=== PATIENT | female | born 1975 | race Hispanic/Latino ===

== ENCOUNTER 2020-04-21 22:59 | Emergency (ER) | payer SELFPAY ==
[2020-04-21] MEDS ORDERED: Metoclopramide HCl 10 MG/2 ML VIAL ONE (23:35)
[2020-04-21] MEDS ORDERED: diphenhydrAMINE 50 MG/ML VIAL ONE (23:35)
== END 2020-04-22 00:45 | disposition home or self-care (01) ==
LOC: BURERS 22:59
DX: R42 Dizziness and giddiness (principal); Z79.899 Other long term (current) drug therapy; G43.909 Migraine, unspecified, not intractable, without status migrainosus
CPT/HCPCS: 93005; 96374; 96375; J1200; J2765

== ENCOUNTER 2020-11-13 10:28 | Outpatient (CLI) | payer OTHER ==
[2020-11-13 10:56] LABS: #Basophils 0.1 thou/uL (0.0-0.2); #Eosinphils 0.2 thou/uL (0.0-0.7); #Monocytes 0.5 thou/uL (0.11-0.59); %Basophils 0.9 % (0.0-1.0); %Eosinophils 2.7 % (0.0-10.0); %Lymphocytes 30.1 % (21.0-51.0); %Monocytes 7.2 % (0.0-10.0); %Neutrophils 59.2 % (42.0-75.0); Mean Corpuscular HGB CONC 32.2 g/dL (32.0-36.0); Mean Corpuscular Volume 93.2 fL (78.0-98.0); Mean Platelet Volume 7.7 fL (7.4-10.4); Platelet Count 337 thou/uL (130-400); RBC Distribution Width 12.9 % (11.5-14.5); Red Blood Cell (RBC) Count 3.99 mill/uL (4.20-5.40); White Blood Cell (WBC) Count 6.8 thou/uL (4.8-10.8)
[2020-11-13 11:29] LABS: ALT (SGPT) 15 U/L (8-55); AST (SGOT) 18 U/L (5-34); Albumin 3.9 g/dL (3.5-5.0); Alkaline Phosphatase 86 U/L (40-110); Anion Gap 12 mmol/L (10-20); BUN (Urea Nitrogen) 11 mg/dL (7.0-18.7); Bilirubin, Total Less than 0.2 mg/dL (0.2-1.2); Calc. Creatinine Clearance 0 mL/min (70-130); Calcium 8.9 mg/dL (7.8-10.44); Carbon Dioxide 24 mmol/L (22-29); Cardiac Risk 4.3 (Less than 4.5); Chloride 107 mmol/L (98-107); Cholesterol 178 mg/dl (< 200 Desired); Globulin 3.7 g/dL (2.4-3.5); Glucose 93 mg/dL (70-105); HDL Cholesterol 41 mg/dL (>60 Neg Risk); LDL Cholesterol, Calculated 114 mg/dL; Protein, Total 7.6 g/dL (6.0-8.3); Sodium 139 mmol/L (136-145); Triglycerides 117 mg/dL (Less than 150)
== END 2020-11-13 10:29 | disposition home or self-care (01) ==
LOC: BURLAB 10:28
PROVIDERS: ATTEND Physician Assistant
DX: D64.9 Anemia, unspecified (principal); I10 Essential (primary) hypertension
CPT/HCPCS: 36415; 80050; 80061

== ENCOUNTER 2021-09-12 21:18 | Emergency (ER) | payer OTHER, SELFPAY ==
[2021-09-12] MEDS ORDERED: HYDROcodone/Acetaminophen 5/325 mg Tablet ONE (21:51)
[2021-09-12] MEDS ORDERED: Lidocaine Viscous Sol 2% 15 ml UD Cup ONE (21:52)
[2021-09-12] MEDS ORDERED: Boostrix 0.5 ML (Tdap) VIAL ONE (21:56)
== END 2021-09-12 22:05 | disposition home or self-care (01) ==
LOC: BURERS 21:18
DX: T54.3X1A Toxic effect of corrosive alkalis and alkali-like substances, accidental (unintentional), initial encounter (principal); T20.56XA Corrosion of first degree of forehead and cheek, initial encounter; T32.0 Corrosions involving less than 10% of body surface; Y92.69 Other specified industrial and construction area as the place of occurrence of the external cause; Z23 Encounter for immunization
CPT/HCPCS: 90471; 90715

== ENCOUNTER 2023-03-27 17:46 | Emergency (ER) | payer OTHER ==
[2023-03-27] MEDS ORDERED: Meclizine HCl 25 MG TAB ONE (18:06)
[2023-03-27 19:39] LABS: Bilirubin Negative (Negative); Blood, Urine Small (Negative); Clarity Turbid (Clear); Glucose, Urine (Dipstick) Negative (Negative); Ketone, Urine Trace mg/dL (Negative); Leukocyte Moderate (Negative); Nitrite Positive (Negative); Protein, Urine (Dipstick) Trace mg/dL (Neg-Trace); Urobilinogen 0.2 mg/dL (Less than 2); pH, Urine 6.5 (5.0-9.0)
[2023-03-27 19:46] LABS: Bacteria/HPF 3+ HPF (None Seen); CAUTI Indications for Culture Alt mental st,lethar; RBC/HPF 0-3 HPF (0-3); WBC/HPF 21-50 HPF (0-3)
[2023-03-27 19:50] LABS: Urine Culture Reflex Yes Yes
[2023-03-27] MEDS ORDERED: cefTRIAXone (ROCEPHIN) 1 GM VIAL ONE (19:52)
[2023-03-27] MEDS ORDERED: Ondansetron ODT 4 MG TAB ONE (20:16)
== END 2023-03-27 20:21 | disposition home or self-care (01) ==
LOC: BURERS 17:46
DX: R42 Dizziness and giddiness (principal); N39.0 Urinary tract infection, site not specified
CPT/HCPCS: 81001; 87077; 87086; 87186; 96374; J0696; Q0162